=== PATIENT | female | born 1970 | race Caucasian/White ===

== ENCOUNTER 2017-04-30 17:03 | Observation (INO) | payer OTHER ==
--- NOTE | ~2017-04-30 | HP ---
Unit #: [id number] #: [id number] Patient: RAKESH CARRASQUILLO [id number] [address] [address] [id number] I MR#: [id number] NAME: RAKESH CARRASQUILLO ROOM: 227 Age: 46 Sex: F Admission Date: 04/30/2017 : 1970 Attending Physician: Dejan Street III, M.D. Primary Care Physician: No Primary Care Physician HISTORY AND PHYSICAL CHIEF COMPLAINT Abdominal pain. HISTORY OF PRESENT ILLNESS This is a 46-year-old lady who developed some severe abdominal pain yesterday morning. She went to the emergency room at [facility] and was diagnosed with two separate incarcerated hernias, one in the umbilical region and one in the epigastric region. She denies any nausea, vomiting or change in bowel habits. She states that the pain has subsided over night. In retrospect she realized she has had some mild nagging symptoms of this in the past, the last of which occurred a couple of weeks ago. PAST MEDICAL HISTORY 1. Arthritis. 2. Reflux. PAST SURGICAL HISTORY 1. Total abdominal hysterectomy. 2. Bladder repair. 3. Left ACL reconstruction. 4. Left ankle surgery. SOCIAL HISTORY She stopped smoking in August and rinks alcohol socially. FAMILY HISTORY Negative for cancer. ALLERGIES No known drug allergies. CURRENT MEDICATIONS 1. Dicyclomine. 2. Prilosec. REVIEW OF SYSTEMS Negative for fevers, jaundice, vomiting or weight loss. Otherwise as above. PHYSICAL EXAMINATION GENERAL: She is in no acute distress. VITALS: Temperature 98.8, heart rate 72, respiratory rate 16, blood pressure 166/100. HEENT: Pupils are equal and reactive to light and accommodation. Unit #: [id number] #: [id number] Patient: RAKESH CARRASQUILLO Extraocular muscles are intact. NECK: Without masses or bruits. LUNGS: Breath sounds bilaterally with equal air exchange. HEART: Regular rate and rhythm without murmur. ABDOMEN: Soft, nondistended and nontender. She is obese. Because of her body habitus I am unable to palpate any specific hernias. EXTREMITIES: Without edema or cyanosis. NEUROLOGIC: Alert and oriented. No focal deficits. DIAGNOSTIC STUDIES IMAGING: CT scan was done at [facility], which showed two hernias, one in the umbilical region and one in the epigastric region. Both are of similar size of around 3.5 cm. They both have incarcerated omentum. LABORATORY: Okay. ASSESSMENT This is a 46-year-old lady who has both umbilical and epigastric incarcerated hernias with omentum. PLAN I discussed with her laparoscopic ventral hernia repair with mesh. She understands the risks and benefits and wishes to proceed. Dictated by Dejan Street III, M.D. VCL/gz TD: 05/01/2017 06:37 JOB #: [id number] HISTORY AND PHYSICAL Page 1 of [address] III, MD X HISTORY AND PHYSICAL
--- NOTE | ~2017-04-30 | OR ---
Unit #: [id number] #: [id number] Patient: RAKESH CARRASQUILLO [id number] [address] [place], [place] [address] [id number] Sandra MR#: [id number] NAME: RAKESH CARRASQUILLO ROOM: [facility] Date of Procedure: 04/30/2017 Admission Date: 04/30/2017 Surgeon: Dejan Street III, M.D. : 1970 Attending Physician: Dejan Street III, M.D. OPERATIVE REPORT PREOPERATIVE DIAGNOSIS Incarcerated epigastric and umbilical hernia. POSTOPERATIVE DIAGNOSIS Incarcerated epigastric and umbilical hernia. PROCEDURE PERFORMED Laparoscopic ventral hernia repair with mesh. SLACK COOPER None. ANESTHESIA General endotracheal tube anesthesia. SPECIMEN Omentum sent to Pathology. COMPLICATIONS None apparent. ESTIMATED BLOOD LOSS Minimal. INDICATIONS FOR PROCEDURE This is a 46-year-old lady, who went to the ER yesterday with severe abdominal pain, has CT scan which showed two separate incarcerated ventral hernias. She is here today for laparoscopic repair. DESCRIPTION OF PROCEDURE After consent was obtained, the patient was brought to the operating room and placed in the supine position. General anesthetic was administered and her abdomen was prepped and draped in standard surgical fashion. I made a 5-mm incision in the right upper quadrant. I used an Optiview to enter into the peritoneal cavity without any difficulty. CO2 pneumoperitoneum was then established. Next, a second 5-mm port was placed in the right lower quadrant. An 11-mm port was placed in the left upper quadrant and a 5-mm port was placed in the left lower quadrant. She had what looked like some incarcerated falciform going up into the epigastric hernia. She also had what looked like two separate hernias near the umbilicus. Once probably an incisional hernia from a prior gynecological related procedure. She also likely has a primary umbilical Unit #: [id number] #: [id number] Patient: RAKESH CARRASQUILLO hernia as well. I freed up the falciform ligament and mobilized that superiorly, so that I would have room for the mesh. I then used cautery to identify the two hernias near the umbilicus. These were both completely reduced and one had looked like some old omentum in it. This was sent to Pathology. Once all the hernias were fully reduced, I estimated that a 6 x 8 inch Ventralight mesh would widely cover these defects with 2 inch margins. I placed 4 corner sutures along the mesh. It was moistened and, rolled up and passed through the largest port site. I then used an Endo passer to help position the mesh and oriented such that the rough side was towards the fascia and the smooth side towards the viscera. I then used SorbaFix Tacker with both an outer and inner row of tacks to fixate the mesh. I had excellent hemostasis and all needle, sponge, and instrument counts were correct x2. I removed all the trocars and released the pneumoperitoneum. I then injected all the port sites with 0.25% plain Marcaine. I reapproximated the skin edges with interrupted 4-0 Vicryl subcuticular suture. Steri-Strips were then applied. The patient tolerated the procedure without any problems and returned to the recovery room in stable condition. Dictated by... Dejan Street III, M.D. VCL/devon TD: 05/01/2017 13:09 JOB #: [id number] CC: Dr. Dobbins OPERATIVE REPORT Page 1 of [address] III, MD PROCEDURE OPERATIVE NOTE
--- NOTE | ~2017-04-30 | CT2 ---
[facility]. [facility] A Service of [facility] & [facility] RADIOLOGY TEXT RESULTS PATIENT: RAKESH CARRASQUILLO LOCATION: C2A 227-01 : [birth year] UNIT #: [id number] AGE: [address]: Dejan Street III, MD SEX: F ORDER DR: [id number] [address] [address] [id number] I MR#: [id number] #: [id number] NAME: RAKESH CARRASQUILLO : 1970 SEX: F STUDY DATE/TIME: 04/30/2017 19:05 UNIT: SEDOF ROOM: [id number] STUDY DESCRIPTION: CT Abd and Pelv W Cont Attending Physician: Dejan Street III, M.D. Ordering Physician: Physician Non-Staff Primary Care Physician: Primary Care Physician No MEDICAL IMAGING REPORT This report is preliminary unless electronic signature is present. EXAM CT abdomen and pelvis 04/30/2017 HISTORY Pain. Abdomen pain started today. Prior left ankle surgery, partial hysterectomy. Left knee surgery bladder reconstruction. FINDINGS CT abdomen and pelvis performed with intravenous administration of 100 mL Isovue 370. Enteric contrast not administered. This CT exam was performed with one or more of the following radiation dose reduction techniques: automatic control, adjustment of mA and/or kV according to patient size, and iterative reconstruction. No comparisons. Dependent atelectasis at lung bases. Inferior heart and pericardium unremarkable. There is a subtle area of enhancement in segment 5 of the liver measuring 1.2 cm in diameter. No evidence of architectural distortion. In absence of risk factors, benign etiology such as hemangioma or focal nodular hyperplasia most likely. Comparison with prior studies recommended if available. In the absence of prior studies, this could be further characterized with multiphase contrast-enhanced MRI or CT. In what is probably the segment 8 of the liver there is a 4-5 mm cyst. Gallbladder unremarkable. Spleen, pancreas, adrenal glands, kidneys unremarkable. CT PELVIS: No inguinal adenopathy. The urinary bladder is unremarkable. Status post hysterectomy. Bilateral ovaries retained. Rim-enhancing 2.2 cm cystic structure in the right ovary likely the dominant follicle for this menstrual cycle. Trace free fluid in pelvis. Not drainable fluid collection. No pelvic or retroperitoneal adenopathy. Small hiatal hernia. Remainder of visualized esophagus and stomach unremarkable. Small bowel shows some fecalized material in loops of distal small bowel. No obstruction. No small bowel wall or fold thickening suggested. No small bowel dilatation. There is some subtle haziness in the fat adjacent to these loops of small bowel. Correlate with any clinical signs or STS. [facility] A Service of [facility] RADIOLOGY TEXT RESULTS PATIENT: RAKESH CARRASQUILLO LOCATION: C2A 227-01 : [birth year] UNIT #: [id number] AGE: [address]: Dejan Street III, MD SEX: F ORDER DR: symptoms of mild distal enteritis. The appendix is normal. Colon contains moderate stool burden without dilatation. Uncomplicated sigmoid diverticulosis. There is a supraumbilical anterior midline abdominal wall hernia containing fat and measuring about 2.8 cm x 2.1 cm x 3.6 cm. The herniated fat is probably from the omentum. There is a small amount of fluid in the hernia sac and there is some haziness in the fat surrounding the hernia sac and in the subjacent omental fat. This raises concern for possible incarceration of fat in the hernia. There is an umbilical hernia also containing fat with some subtle haziness and stranding in this fat which could be a reflection of some degree of incarceration as well. This haziness and stranding extends toward the above described inflammatory change adjacent to small bowel. The hernia may be the cause for the inflammatory change. Scattered atherosclerotic arterial calcifications. Bony structures show no acute appearing abnormality. Not mentioned above, the umbilical hernia measures approximately 3.4 cm x 2.7 cm x 1.6 cm. Not mentioned above, there is a 6 mm noncalcified pulmonary nodule in the anterior right lower lobe. A 6-month CT followup recommended unless there are outside studies demonstrating prolonged stability. IMPRESSION 1. Please see complete dictation above for full details. Midline anterior abdominal wall supraumbilical hernia measuring up to 3.6 cm in maximum diameter. Omental fat extends into it. There is a trace amount of fluid within the hernia sac and there is some inflammatory haziness and stranding along the periphery of the hernia. Findings raise concern for possible developing incarceration. Correlate with location of patient's pain. 2. Immediately inferior to the above described hernia there is an umbilical hernia measuring up to 3.4 cm in maximum diameter also containing fat with some internal stranding. This internal stranding extends into the intraabdominal fat. Again this could be a reflection of developing incarceration/inflammation. Weight should be given the clinical assessment. 3. There is fecalization of small bowel contents in distal small bowel without small bowel dilatation wall or fold thickening. The above described intraabdominal fat inflammatory change subjacent to the umbilical hernia is in proximity to these loops of small bowel containing fecalized material and it is possible that the appearance of the small bowel and adjacent fat could reflect a very mild distal ileitis. Weight should be given the clinical assessment. The small bowel is otherwise unremarkable. 4. Uncomplicated sigmoid diverticulosis. 5. Appendix normal. 6. Right ovarian cyst measuring up to 2.2 cm in diameter felt to represent the dominant follicle for this menstrual cycle. 7. Trace free fluid in pelvis. Likely physiologic. Not a drainable STS. [facility] A Service of [facility] RADIOLOGY TEXT RESULTS PATIENT: RAKESH CARRASQUILLO LOCATION: [facility] 227-01 : [birth year] UNIT #: [id number] AGE: [address]: Dejan Street III, MD SEX: F ORDER DR: fluid collection. 8. Status post hysterectomy. 9. 4-5 mm segment 8 hepatic cyst. 10. 1.20 cm focus of subtle enhancement segment 5 of the liver. Indeterminate appearance on this study. In absence of risk factors, most likely a benign finding such as a hemangioma or a focal nodular hyperplasia. It is best fully characterized with multiphase contrast-enhanced MRI or CT. 11. 6 mm noncalcified subpleural nodule anterior right middle lobe. 6-month CT followup recommended unless there are outside studies demonstrating prolonged stability. See remainder of incidental findings in body of report above. Dictated by... Jose Tamayo M.D. THIS IS AN ELECTRONICALLY VERIFIED REPORT Jose Tamayo M.D. at 05/02/2017 10:44 PM TAMI/lucho TD: 05/01/2017 05:37 JOB #: [id number] MEDICAL IMAGING REPORT Page 1 of 1
[2017-04-30] MEDS ORDERED: DICYCLOMINE PO (17:06)
[2017-04-30] MEDS ORDERED: OMEPRAZOLE PO (17:06)
[2017-04-30 18:22] LABS: BASOPHIL# 0.1 X10e3 (0-0.3); BASOPHIL% 1.3 % (0-2.5); DIFF IND NO; EOSINOPHIL# 0.2 X10e3 (0-0.7); EOSINOPHIL% 2.6 % (0.0-7.0); HEMATOCRIT 41.1 % (35.0-45.0); HEMOGLOBIN 14.1 gm/dL (12.0-16.0); LYMPHOCYTE# 2.6 X10e3 (1.0-3.5); LYMPHOCYTE% 30.4 % (17.0-45.0); MEAN CELL VOLUME 93.7 FL (83-96); MEAN CORPUSCULAR HEMOGLOBIN 32.1 PG (28-34); MEAN CORPUSCULAR HGB CONC 34.2 g/dL (30-36); MEAN PLATELET VOLUME 9.2 FL (6.5-11.5); MONOCYTE# 0.7 X10e3 (0-1.0); MONOCYTE% 8.5 % (3.0-12.0); NEUTROPHIL# 4.9 X10e3 (1.5-7.1); NEUTROPHIL% 57.2 % (40-75); PLATELET COUNT 198 X10e3 (140-420); RED BLOOD COUNT 4.39 X10e (3.90-5.30); RED CELL DISTRIBUTION WIDTH 13.9 % (11.0-15.5); WHITE BLOOD COUNT 8.6 X10e3 (4.0-10.5)
[2017-04-30 18:39] LABS: URINE SOURCE CLEAN CATCH
[2017-04-30 18:41] LABS: URINE APPEARANCE CLEAR; URINE BILIRUBIN NEG (NEG); URINE BLOOD NEG (NEG); URINE COLOR YELLOW; URINE GLUCOSE NEG (NORM); URINE KETONE NEG (NEG); URINE LEUKOCYTE ESTERASE NEG (NEG); URINE NITRATE NEG (NEG); URINE PROTEIN NEG (NEG); URINE UROBILINOGEN 0.2 MG/DL (NORM)
[2017-04-30 18:44] LABS: ALBUMIN SERUM 4.5 g/dL (3.5-5.0); BILIRUBIN, DIRECT 0.1 mg/dL (0.0-0.2); BILIRUBIN,INDIRECT 0.4 mg/dL (0.0-0.9); BILIRUBIN,TOTAL 0.5 mg/dL (0.2-2.0); CALCIUM SERUM 8.9 mg/dL (8.4-10.2); CREATININE SERUM 0.8 mg/dL (0.6-1.4); GLOM FILT RATE Estimated 87.9 mL/min (>60); POTASSIUM 3.6 mmol/L (3.5-5.1); PROTEIN TOTAL SERUM 7.7 g/dL (6.0-8.3)
[2017-04-30 18:47] LABS: MICRO INDICATED? NO
[2017-05-01] MEDS ORDERED: NORCO 7.5-3251 EACH PO (10:18)
== END 2017-05-01 15:41 | disposition home or self-care (01) | DRG 395 ==
LOC: SED 17:03 → SEDOF 21:00 → C2A 21:00 → SEDOF 21:03 → SED 21:03 → C2A 05-01 04:01 → SEDOF 05-01 04:01 → C2A 05-01 15:41
PROVIDERS: Physician Assistant
DX: K42.0 Umbilical hernia with obstruction, without gangrene (principal); K43.6 Other and unspecified ventral hernia with obstruction, without gangrene; K21.9 Gastro-esophageal reflux disease without esophagitis; Z87.891 Personal history of nicotine dependence; K57.30 Diverticulosis of large intestine without perforation or abscess without bleeding; N83.201 Unspecified ovarian cyst, right side; K76.89 Other specified diseases of liver; Z90.710 Acquired absence of both cervix and uterus; R91.1 Solitary pulmonary nodule
CPT/HCPCS: 36415; 74177; 80048; 80076; 81003; 82150; 83690; 85025; 88302; 96361; 96374; 96375; 99285; C1787; G0378; J0330; J0690; J1650; J1885; J2250; J2270; J2710; J3010; Q9967